=== PATIENT | female | born 1955 | race Caucasian/White ===

== ENCOUNTER 2025-01-04 08:20 | Day surgery (SDC) | payer MEDICARE, BC ==
[~2025-01-04] VITALS: Ht 152.4 cm; Wt 52.6 kg
[~2025-01-04 08:20] MED LIST: CALC600T61 PO; D3 S20002 PO; ECOT81TA5 PO; FARX1TAB3 PO; JANU100T PO; KP F1200 PO; LOSA50TA28 PO; METF-839 PO; NEXI40CA PO; NORV5TAB PO; PHENYLEPHRINE 10% OPHTH SOL 5ML OS PRN; PRES1CHW PO; SIMV-253 PO
[2025-01-04] MEDS: TROPICAMIDE 1% OPHTH SOLN 15ML OS SCH (10:07)
[2025-01-04] MEDS: PHENYLEPHRINE 2.5% OPHTH SOL 2ML OS SCH (10:07)
[2025-01-04] MEDS: CYCLOPENTOLATE 1% OPHTH SOLN 2 ML BTL OS SCH (10:07)
[2025-01-04] MEDS: OFLOXACIN 0.3 % (OCUFLOX) OPTH SOL 5ML OS ONE (10:07)
[2025-01-04] MEDS: LIDOCAINE 3.5% 1 ML OPHTH TOPICAL GEL OU ONE (10:07)
[2025-01-04] MEDS ORDERED: MIDAZOLAM INJ 2 MG/2 ML VIAL As Ordered ONE (10:24)
[2025-01-04] MEDS: CEFUROXIME 1 MG/0.1 ML INTRACAMERAL INJ As Ordered ONE (10:50)
[2025-01-04] MEDS: LIDOCAINE 1% SDV 5 ML VIAL As Ordered ONE (10:50)
[2025-01-04] MEDS: BSS IRRIG/VANCO(10MG)/TOBRA(5MG)/EPINEPH(1:1000-0.5CC)500ML BAG-ORONLY As Ordered ONE (10:50)
[2025-01-04 11:00] VITALS: BP 134/67; TEMP 97.2; O2SAT 99
== END 2025-01-04 11:22 | disposition home or self-care (01) ==
LOC: M SDC 08:20
PROVIDERS: ATTEND Ophthalmology
DX: H25.12 Age-related nuclear cataract, left eye (principal); I10 Essential (primary) hypertension; E78.5 Hyperlipidemia, unspecified; E11.9 Type 2 diabetes mellitus without complications; K21.9 Gastro-esophageal reflux disease without esophagitis; K22.70 Barrett's esophagus without dysplasia; Z88.2 Allergy status to sulfonamides; Z79.84 Long term (current) use of oral hypoglycemic drugs; Z79.899 Other long term (current) drug therapy
CPT/HCPCS: 66984; J0697; J2250; J3010; V2632

== ENCOUNTER 2025-03-29 07:07 | Day surgery (SDC) | payer MEDICARE, BC ==
[~2025-03-29] VITALS: Ht 152.4 cm; Wt 57.3 kg
[2025-03-29] MEDS: OFLOXACIN 0.3 % (OCUFLOX) OPTH SOL 5ML OD ONE (06:00)
[2025-03-29] MEDS: LIDOCAINE 3.5% 1 ML OPHTH TOPICAL GEL OU ONE (06:00)
[~2025-03-29 07:07] MED LIST changes: +CYCLOPENTOLATE 1% OPHTH SOLN 2 ML BTL OD SCH; +LIDOCAINE 3.5% 1 ML OPHTH TOPICAL GEL OU ONE; +MIDAZOLAM INJ 2 MG/2 ML VIAL As Ordered ONE; +OFLOXACIN 0.3 % (OCUFLOX) OPTH SOL 5ML OD ONE; +PHENYLEPHRINE 10% OPHTH SOL 5ML OD PRN; -PHENYLEPHRINE 10% OPHTH SOL 5ML OS PRN; +PHENYLEPHRINE 2.5% OPHTH SOL 2ML OD SCH; +TROPICAMIDE 1% OPHTH SOLN 15ML OD SCH
[2025-03-29] MEDS: TROPICAMIDE 1% OPHTH SOLN 15ML OD SCH (08:54)
[2025-03-29] MEDS: PHENYLEPHRINE 2.5% OPHTH SOL 2ML OD SCH (08:54)
[2025-03-29] MEDS: CYCLOPENTOLATE 1% OPHTH SOLN 2 ML BTL OD SCH (08:54)
[2025-03-29] MEDS: LIDOCAINE 1% SDV 5 ML VIAL As Ordered ONE (10:28)
[2025-03-29] MEDS: BSS IRRIG/VANCO(10MG)/TOBRA(5MG)/EPINEPH(1:1000-0.5CC)500ML BAG-ORONLY As Ordered ONE (10:28)
[2025-03-29] MEDS: CEFUROXIME 1 MG/0.1 ML INTRACAMERAL INJ As Ordered ONE (10:28)
[2025-03-29 10:43] VITALS: BP 146/66; TEMP 96.9; O2SAT 97
== END 2025-03-29 10:55 | disposition home or self-care (01) ==
LOC: M SDC 07:07
PROVIDERS: ATTEND Ophthalmology
DX: H25.11 Age-related nuclear cataract, right eye (principal); I10 Essential (primary) hypertension; E11.9 Type 2 diabetes mellitus without complications; E78.5 Hyperlipidemia, unspecified; K21.9 Gastro-esophageal reflux disease without esophagitis; Z79.84 Long term (current) use of oral hypoglycemic drugs; Z79.899 Other long term (current) drug therapy; Z88.2 Allergy status to sulfonamides
CPT/HCPCS: 66984; J0697; J2250; J3010; V2632